=== PATIENT | female | born 1980 | race Caucasian/White ===

== ENCOUNTER 2016-10-06 08:28 | Emergency (ER) | payer BC ==
[~2016-10-06] VITALS: Ht 160 cm; Wt 67.7 kg
[2016-10-06 08:35] VITALS: Ht 160 cm; Wt 67.7 kg
[2016-10-06] MEDS ORDERED: FLUORESCEIN STRIP RIGHT EYE ONE (09:30)
[2016-10-06] MEDS ORDERED: TETRACAINE 0.5% 4 ML OPH RIGHT EYE ONE (09:30)
[2016-10-06] MEDS ORDERED: OFLO5DRO46 RIGHT EYE (10:13)
--- NOTE | 2016-10-06 15:42 | ERD ---
ER Documentation Chief Complaint Date/Time DATE: 10/06/16 TIME: 15:38 Chief Complaint right eye pain HPI 36-year-old female patient with no significant past medical history presents the ED complaining of a right eye injury that occurred yesterday at 5 PM. Reports that she was playing peekaboo with her son and he accidentally jabbed her right eye with his fingers. States that she tried taking ibuprofen without relief of her symptoms. Reports that she has some blurred vision but denies any vision loss or diplopia. States that she tried washing her eyes out with water but it did not help with the symptoms. States that he feels like her right eye has a cut in it. Denies any photophobia, headache, nausea, vomiting, weakness, bleeding. ROS All systems reviewed and are negative except as per history of present illness. Medications Home Meds Active Scripts Ofloxacin* (Ocuflox*) 0.3%-5 Ml Ophth Drops, 1 DROP RIGHT EYE QID for 7 Days, # 1 BOTTLE Prov:SIMIN MIRANDA PA-C 10/06/16 Reported Medications [None] No Conflict Check 03/24/11 Allergies Allergies: Coded Allergies: No Known Allergy (Verified , 10/06/16) PMhx/Soc History of Surgery: No Anesthesia Reaction: No Hx Neurological Disorder: No Hx Respiratory Disorders: No Hx Cardiac Disorders: No Hx Psychiatric Problems: No Hx Miscellaneous Medical Probl: No Hx Alcohol Use: No Hx Substance Use: No Hx Tobacco Use: No Smoking Status: Never smoker Physical Exam Vitals Vital Signs Date Time Temp Pulse Resp B/P Pulse Ox O2 Delivery O2 Flow Rate FiO2 10/06/16 08:35 98.1 77 18 106/57 99 Physical Exam Const: Wey-vzw-uydqtjoqb, well-nourished. In no acute distress. Head: Atraumatic, normocephalic Eyes: Injected right conjunctiva. No purulent discharge. PERRLA. EOMI ENT: Normal external ear. Ear canal without erythema. Tympanic membrane pearly betts without effusion or bulging. Nasal canal clear with normal turbinates. Moist oropharynx without tonsillar exudates. Non-erythematous pharynx. Uvula midline. No drooling. No trismus. Neck: No cervical midline tenderness. Full range of motion. No meningismus. No cervical lymphadenopathy. No JVD. Resp: Clear to auscultation bilaterally. No wheezing, rhonchi, rales, or crackles. No accessory muscle use. No retractions. Cardio: Regular rate and rhythm. No murmurs, rubs or gallops. Abd: Soft, non tender, non distended. Normal bowel sounds. No palpable masses. No rebound tenderness. No guarding. Negative McBurney's Point. Negative Jane's Sign. Skin: Normal skin turgor. No petechiae or rashes Back: No midline tenderness. No CVA tenderness. Ext: No cyanosis, or edema. Distal pulses intact bilaterally. Neur: Awake and alert. Normal gait. Normal coordination. Cranial Nerves II- VII intact. Normal finger to nose. Muscle strength 5/5. Sensation intact. Psych: Normal Mood and Affect Results 24 hrs Current Medications Medications (Trade) Dose Ordered Sig/Tasneem Route PRN Reason Start Time Stop Time Status Last Admin Dose Admin Fluorescein Sodium (Jfswo-D-Hvmnb) 1 strip ONCE ONCE RIGHT EYE 10/06/16 09:30 10/06/16 09:31 DC Tetracaine HCl (Tetracaine 0.5% Steri-Unit Daxa) 1 drop ONCE ONCE RIGHT EYE 10/06/16 09:30 10/06/16 09:31 DC Procedures/MDM 36-year-old female with no significant past medical history presents to the ED complaining of a right eye injury. Patient is afebrile and nontoxic-appearing. Patient has normal vital signs. Patient gave consent to do a Bernard lamp at this time. Eye Exam w/ Wood's lamp: Visual Acuity: R 20/100 L 20/13 Bilateral 20/13 Visual Lewis: Intact in all four quadrants bilaterally Lac ducts/glands: No swelling Lids w/ evertion: Normal, no foreign body Conj/Mascot: Clear, negative Fluorescein/Sarah's, Slight horizontal linear 1 cm abrasion and uptake noted of the inner cornea Anterior Chamber: Clear Patient likely sustained a corneal abrasion vs. ulcer secondary to an injury from patient's son's fingers. Patient's ocular symptoms have stabilized while they have been evaluated in the department and are appropriate for outpatient work up. Low suspicion for ruptured globe, retinal detachment, periorbital cellulitis, acute angle closure glaucoma, deep space infection, iritis, traumatic hyphema, conjunctivitis, subconjunctival hemorrhage, pterygium, hypopyon, blepharitis, hordeolum, chalazion, or other emergent conditions. Discharge medications: Ocuflox Eye Drops Strictly instructed patient to follow up with an history card clerk within 24 hours. Instructed patient to return to the ED for any worsening symptoms. Patient is hemodynamically stable. Patient's questions were answered. Patient understood and agreed with discharge plan. Departure Diagnosis: Primary Impression: Eye injury Encounter type: initial encounter Laterality: right Qualified Code: S05.91XA - Right eye injury, initial encounter Condition: Stable Patient Instructions: Corneal Injury, Corneal Abrasion Referrals: COMMUNITY CLINICS YOU HAVE RECEIVED A MEDICAL SCREENING EXAM AND THE RESULTS INDICATE THAT YOU DO NOT HAVE A CONDITION THAT REQUIRES URGENT TREATMENT IN THE EMERGENCY DEPARTMENT. FURTHER EVALUATION AND TREATMENT OF YOUR CONDITION CAN WAIT UNTIL YOU ARE SEEN IN YOUR DOCTORS OFFICE WITHIN THE NEXT 1-2 DAYS. IT IS YOUR RESPONSIBILITY TO MAKE AN APPOINTMENT FOR FOLOW-UP CARE. IF YOU HAVE A PRIMARY DOCTOR --you should call your primary doctor and schedule an appointment IF YOU DO NOT HAVE A PRIMARY DOCTOR YOU CAN CALL OUR PHYSICIAN REFERRAL HOTLINE AT IF YOU CAN NOT AFFORD TO SEE A PHYSICIAN YOU CAN CHOSE FROM THE FOLLOWING [facility] [place] [address] [facility]. [facility] [address] [facility]. [facility] [address] [facility] [facility] [address] [facility] [facility] [address] [facility]. [facility]. [address] [facility]. [facility] YOU HAVE RECEIVED A MEDICAL SCREENING EXAM AND THE RESULTS INDICATE THAT YOU DO NOT HAVE A CONDITION THAT REQUIRES URGENT TREATMENT IN THE EMERGENCY DEPARTMENT. FURTHER EVALUATION AND TREATMENT OF YOUR CONDITION CAN WAIT UNTIL YOU ARE SEEN IN YOUR DOCTORS OFFICE WITHIN THE NEXT 1-2 DAYS. IT IS YOUR RESPONSIBILITY TO MAKE AN APPOINTMENT FOR FOLOW-UP CARE. IF YOU HAVE A PRIMARY DOCTOR --you should call your primary doctor and schedule and appointment IF YOU DO NOT HAVE A PRIMARY DOCTOR YOU CAN CALL OUR PHYSICIAN REFERRAL HOTLINE AT . IF YOU CAN NOT AFFORD TO SEE A PHYSICIAN YOU CAN CHOSE FROM THE FOLLOWING [facility] INSTITUTIONS: [facility] [address] [place] [address] [facility] [address] [place] [address] [facility] [address] [place] [address] [facility] URGENT CARE/SPECIALTIES Additional Instructions: Seguimiento con oftalmlogo dentro de las 24 horas para evaluacin adicional y tratamiento Regrese a estas instalaciones si no se mejora palma esperbamos o palma le dijimos. SIMIN MIRANDA PA-C October 06, 2016 15:42 SIMIN MIRANDA PA-C October 06, 2016 15:42 SIMIN MIRANDA PA-C October 06, 2016 15:42
== END 2016-10-06 10:22 | disposition home or self-care (01) ==
LOC: FTE 08:28
DX: S05.91XA Unspecified injury of right eye and orbit, initial encounter (principal); W22.8XXA Striking against or struck by other objects, initial encounter; Y92.9 Unspecified place or not applicable
CPT/HCPCS: Z7502; Z7610; 99283